=== PATIENT | female | born 1970 | race Asian ===

== ENCOUNTER 2020-02-21 00:34 | Emergency (ER) | payer SELFPAY ==
[2020-02-21] MEDS ORDERED: ALBUTEROL 1 PUFF INH STA (01:09)
[2020-02-21] MEDS ORDERED: CHERRY SYRUP 10 ML UDC PO ONE (01:10)
[2020-02-21] MEDS ORDERED: AZITHROMYCIN 250 MG TABLET PO STA (01:10)
[2020-02-21] MEDS ORDERED: DEXAMETHASONE 10 MG/ML VIAL PO STA (01:10)
--- NOTE | 2020-02-21 01:12 | ED Physician Documentation ---
PD HPI URI - Stated complaint Stated Complaint: SOA/COUGH - Chief complaint Chief Complaint: Resp - History obtained from History obtained from: Patient - History of Present Illness Timing - onset: How many days ago (3) Timing duration: Days (3) Timing details: Gradual onset, Still present Associated symptoms: Nasal congestion, Dry cough, Dyspnea. No: Fever, Chills, Sweats Contributing factors: No: Sick contact Improves by: Rest, MDI/nebulizer Worsened by: Activity Similar symptoms before: Diagnosis (asthma as a child) Recently seen: Other (contacted PMD and has an inhaler prescribed.) - Additional information Additional information: Previously well 49-year-old female with a history of asthma has developed a cough and congestion and some shortness of breath. She was able to call her doctor and get an inhaler which she has not used for years. She thought that this helped a little bit. She today has persistence of shortness of breath and cough which is nonproductive and she is come to the emergency department. She is worried about coronavirus. She is also been having some back pain is been using some salon pause she does feel that she is hydrating adequately. Review of Systems Constitutional: reports: Fatigue. denies: Fever, Chills, Myalgias Eyes: denies: Decreased vision Ears: denies: Ear pain Nose: reports: Rhinorrhea / runny nose, Congestion Throat: denies: Sore throat Cardiac: denies: Chest pain / pressure, Palpitations, Pedal edema, Calf pain Respiratory: reports: Dyspnea, Cough GI: denies: Abdominal Pain, Nausea, Vomiting : denies: Dysuria, Frequency Skin: denies: Rash Musculoskeletal: reports: Back pain. denies: Neck pain, Extremity pain Neurologic: denies: Generalized weakness, Focal weakness, Numbness PD PAST MEDICAL HISTORY - Past Medical History Past Medical History: Yes Cardiovascular: Hypertension Respiratory: Asthma Psych: Anxiety - Past Surgical History Past Surgical History: No - Present Medications Home Medications: Ambulatory Orders Medication Instructions Recorded Confirmed Azithromycin [Zithromax] 250 mg PO DAILY #4 tablet 02/21/20 Lisinopril [Zestril] 40 mg PO DAILY 02/21/20 02/21/20 Meloxicam 15 mg PO DAILY 02/21/20 02/21/20 hydrOXYzine HCL [Hydroxyzine HCl] 25 mg PO QPM PRN 02/21/20 02/21/20 - Allergies Allergies/Adverse Reactions: Allergies Allergy/AdvReac Type Severity Reaction Status Date / Time No Known Drug Allergies Allergy Verified 02/21/20 00:50 - Social History Does the pt smoke?: No Smoking Status: Never smoker Does the pt drink ETOH?: No Does the pt have substance abuse?: No - Immunizations Immunizations are current?: Yes - POLST Patient has POLST: No PD ED PE NORMAL - Vitals Vital signs reviewed: Yes (hypertensive) - General General: Alert and oriented X 3, No acute distress, Well developed/nourished - HEENT HEENT: Atraumatic, PERRL, EOMI, Pharynx benign, Other (left TM is inflamed with indistinct landmarks and the right is less invovled. ) - Neck Neck: Supple, no meningeal sign, No bony TTP - Cardiac Cardiac: RRR, No murmur - Respiratory Respiratory: No respiratory distress, Other (diminished breath sounds) - Abdomen Abdomen: Soft, Non tender - Back Back: No CVA TTP, No spinal TTP, Other (There are solan pas on the back. 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 No acute abnormality seen in the chest.), EMP read indepedently, See rad report PD MEDICAL DECISION MAKING - ED course Complexity details: reviewed results, re-evaluated patient, considered differential, d/w patient ED course: 49-year-old female with cough and congestion during the peak coronavirus has no fever is not hypoxic she does have otitis on exam and she has a history of asthma. She is swab for coronavirus the chest x-ray is obtained she is administered dexamethasone 10 mg orally and a azithromycin 500 mg orally. Respiratory therapy comes to the emergency department and assist with teaching the patient in proper use of the rescue inhaler. This does help. Departure - Departure Disposition: 01 Home, Self Care Clinical Impression: Otitis media Qualifiers: Otitis media type: suppurative Chronicity: acute Laterality: bilateral Recurrence: non-recurrent Spontaneous tympanic membrane rupture: without spontaneous rupture Qualified Code(s): H66.003 - Acute suppurative otitis media without spontaneous rupture of ear drum, bilateral Reactive airway disease Qualifiers: Asthma severity: mild Asthma persistence: intermittent Asthma complication type: with acute exacerbation Qualified Code(s): J45.21 - Mild intermittent asthma with (acute) exacerbation Condition: Stable Instructions: ED Bronchitis Asthmatic, ED Otitis Media Acute Adult, COVID-19 [facility], COVID-19 [facility] Department Statement Follow-Up: Helene Gonzalez ARNP [Physician No Access] - Prescriptions: Azithromycin [Zithromax] 250 mg PO DAILY #4 tablet
--- NOTE | 2020-02-21 01:35 | XRAY Report ---
Reason: soa Procedure Date: 02/21/2020 Accession Number: [id number] / [id number] Procedure: XR - Chest 1 View X-Ray CPT Code: 30611 Final Report FULL RESULT: EXAM: CHEST RADIOGRAPHY EXAM DATE: 02/21/2020 01:22 AM. CLINICAL HISTORY: Shortness of breath. COMPARISON: None. TECHNIQUE: 1 view. FINDINGS: Lungs/Pleura: No alveolar consolidation or pleural effusion seen. No pneumothorax. Mediastinum: Within exam limitations, the cardiomediastinal contour is normal. Other: None. IMPRESSION: 1. No acute abnormality seen in the chest. RADIA
[2020-02-21 02:00] VITALS: BP 159/103
== END 2020-02-21 02:00 | disposition home or self-care (01) ==
LOC: ED 00:34
DX: H66.003 Acute suppurative otitis media without spontaneous rupture of ear drum, bilateral (principal); J45.21 Mild intermittent asthma with (acute) exacerbation; I10 Essential (primary) hypertension; Z20.828 Contact with and (suspected) exposure to other viral communicable diseases
CPT/HCPCS: 71045; 87635; 99284; A9270; 81599

== ENCOUNTER 2021-07-12 13:27 | Outpatient (CLI) | payer SELFPAY ==
--- NOTE | 2021-07-12 15:21 | XRAY Report ---
PROCEDURE: Chest 2 View X-Ray INDICATIONS: ABD PAIN LUQ TECHNIQUE: 2 view(s) of the chest. COMPARISON: Prior chest radiograph, 4-20 Correlation is made with the accompanying abdominal plain f ilms, 07/12/2021. FINDINGS: Surgical changes and devices: None. Lungs and pleura: No pleural effusions or pneumothorax. Lungs are clear. Mediastinum: Mediastinal contours are normal. Heart size is normal. Bones and chest wall: No suspicious bony abnormalities. Soft tissues appear unremarkable. IMPRESSION: Unremarkable chest plain films, stable from prior. Reviewed by: Seth Blount MD on 07/12/2021 2:20 PM [email or web address] Approved by: Seth Blount MD on 07/12/2021 2:20 PM AKDT Station ID: [id number]
--- NOTE | 2021-07-12 15:22 | XRAY Report ---
PROCEDURE: Abdomen 2 View X-Ray INDICATIONS: LUQ ABD PAIN TECHNIQUE: 1 view of the abdomen were acquired. COMPARISON: Correlation is made with the accompanying abdominal plain films, 07/12/2021 FINDINGS: Surgical changes and devices: None. Bowel: No pneumoperitoneum. The bowel gas pattern is normal. Soft tissues: No masses; visualized solid organ contours appear normal in size. No suspicious abdom inal calcifications. Bones: No suspicious bony abnormalities. Focal lower lumbar spine degenerative changes are seen. IMPRESSION: There is a nonobstructive bowel gas pattern seen. If the symptoms persist or worsen, please consider a dedicated follow-up CT for further evaluation. Reviewed by: Seth Blount MD on 07/12/2021 2:20 PM AN Approved by: Seth Blount MD on 07/12/2021 2:20 PM AN Station ID: [id number]
== END 2021-07-12 23:59 | disposition home or self-care (01) ==
LOC: DI.N 13:27
PROVIDERS: ATTEND Physician Assistant Medical
DX: R10.12 Left upper quadrant pain (principal)

== ENCOUNTER 2021-07-13 12:46 | Outpatient (CLI) | payer SELFPAY ==
[2021-07-13 18:10] LABS: ALBUMIN 4.5 g/dL (3.2-5.5); ALBUMIN/GLOBULIN RATIO 1.3 (1.0-2.2); BILIRUBIN,TOTAL 0.7 mg/dL (0.2-1.0); CALCIUM 9.9 mg/dL (8.5-10.3); CREATININE 0.9 mg/dL (0.4-1.0); POTASSIUM 3.1 mmol/L (3.5-5.0); TOTAL PROTEIN 8.1 g/dL (6.7-8.2)
[2021-07-13 18:48] LABS: BASOPHILS # (AUTO) 0.1 10^3/uL (0.0-0.1); EOSINOPHILS # (AUTO) 0.1 10^3/uL (0.0-0.7); EOSINOPHILS % (AUTO) 1.7 %; HCT - HEMATOCRIT 36.8 % (37.0-47.0); HGB - HEMOGLOBIN 12.4 g/dL (12.0-16.0); LYMPHOCYTES % (AUTO) 40.6 %; MEAN CORPUSCULAR HEMOGLOBIN 30.5 pg (27.0-31.0); MEAN CORPUSCULAR HGB CONC 33.7 g/dL (32.0-36.0); MEAN CORPUSCULAR VOLUME 90.4 fL (81.0-99.0); MEAN PLATELET VOLUME 9.7 fL (7.9-10.8); MONOCYTES # (AUTO) 0.5 10^3/uL (0.0-1.0); MONOCYTES % (AUTO) 10.2 %; NEUTROPHILS # (AUTO) 2.2 10^3/uL (1.5-6.6); NEUTROPHILS % (AUTO) 46.3 %; PLT - PLATELET COUNT 294 10^3/uL (130-450); RED BLOOD COUNT 4.07 10^6/uL (4.20-5.40); RED CELL DISTRIBUTION WIDTH 12.6 % (12.0-15.0); WHITE BLOOD COUNT 4.8 x10^3/uL (4.8-10.8)
== END 2021-07-13 12:47 | disposition home or self-care (01) ==
LOC: LAB.N 12:46
PROVIDERS: ATTEND Physician Assistant Medical
DX: K29.70 Gastritis, unspecified, without bleeding (principal)
CPT/HCPCS: 36415; 80053; 83690; 85025; 87338